=== PATIENT | female | born 1975 | race Caucasian/White ===

== ENCOUNTER 2018-11-20 13:48 | Outpatient (REF) | payer BC, SELFPAY ==
--- NOTE | 2018-11-20 12:00 | PAPFT_PTH ---
PATIENT: Leticia Billings LOC: [facility] U#:[id number] AGE/SX: 43/F ROOM: RE11/20/[address]: Karine Miles APRN : 1975 BED: DIS: 11/20/2018 SPEC #: [id number] RECD: 11/21/18 12:49 STATUS: NGOC REHeidy #: [id number] MAXIMILIANO: 11/20/18 12:[address]: Karine Miles DEPT: [facility] Cytology RECD BY: Sanna Larson Tissues: 1 - CX/ENDOCX FOR PAP SMEARS Procedures: PAP THIN PREP/UVM Screening HPV DNA PROBE Comments: [id number]
== END 2018-11-20 14:08 ==
LOC: LBN 13:48
DX: Z12.4 Encounter for screening for malignant neoplasm of cervix (principal); Z11.51 Encounter for screening for human papillomavirus (HPV)
CPT/HCPCS: 88142; 87624

== ENCOUNTER 2019-06-09 00:40 | Outpatient (CLI) | payer BC, SELFPAY ==
--- NOTE | 2019-06-09 15:00 | DI.MAMMO_ITS ---
SYMPTOM/DIAGNOSIS: BREAST CANCER SCREENING. MAMMOGRAMS: Mammograms were interpreted according to the usual protocol including computer analysis with CAD system, tomosynthesis and C view imaging. Comparison with prior examinations. Breast density category C. No suspicious masses or microcalcifications are seen. There is no definite evidence of malignancy. IMPRESSION: Category 1, negative mammogram. Routine screening is recommended. Breast density category C. MQSA ASSESSMENT OF FINDINGS: Negative. Category 1. Patient will receive a letter notifying them of these results. Bi-RADS category C. The breasts are heterogeneously dense, which may obscure small masses.
== END 2019-06-09 01:00 ==
DX: Z12.31 Encounter for screening mammogram for malignant neoplasm of breast (principal)
CPT/HCPCS: 77063; 77067

== ENCOUNTER 2019-11-28 01:15 | Outpatient (CLI) | payer BC, SELFPAY ==
[2019-11-28 10:31] LABS: Anion Gap 10.1 mmol/L (3-11); BUN 10 mg/dL (7-18); CO2 27.9 mmol/L (21.0-32.0); CREATININE 0.73 mg/dL (0.55-1.02); Calcium 9.4 mg/dL (8.5-10.1); Chloride 105 mmol/L (98-107); Glucose 85 mg/dL (74-106); Potassium 4.1 mmol/L (3.5-5.1); Sodium 143 mmol/L (136-145); TSH (W/Ref FT4) 1.56 uIU/mL (0.36-3.74)
== END 2019-11-28 01:35 ==
DX: Z00.00 Encounter for general adult medical examination without abnormal findings (principal); R00.2 Palpitations; G47.00 Insomnia, unspecified
CPT/HCPCS: 36415; 80048; 84443

== ENCOUNTER 2020-05-09 21:34 | Emergency (ER) | payer BC, SELFPAY ==
[2020-05-09 21:38] VITALS: BP 157/82; PULSE 89; RESP 16; TEMP 37.3; O2SAT 99
--- NOTE | 2020-05-09 21:52 | ED.GENADUL_ITS ---
Discharge Plan Disposition Patient Disposition: HOME Condition: Stable Discharge Details Chief Complaint: Allergic Clinical Impression: Contact dermatitis Primary Care Provider: Karine Miles ED Provider: Michael Dillon Home Meds and New Rx's Prescriptions: New prednisone 20 mg tablet 60 mg PO DAILY 5 Days Qty: 15 RF: 0 Continued lorazepam 0.5 mg tablet 0.5 mg PO BID MDD 2mg PRN (Reason: anxiety/panic) Qty: 18 RF: 0 acetaminophen [Tylenol] 325 MG tablet 650 mg PO PRN PRNRF: 0 ibuprofen 600 MG tablet 600 mg PO TID PRN RF: 0 naproxen sodium [Aleve] 220 MG capsule 220 mg PO BID PRNRF: 0 escitalopram oxalate 5 mg tablet 5 mg PO DAILY Qty: 30 RF: 1 epinephrine [EpiPen 2-Elier] 0.3 MG/0.3 ML auto-injector 0.3 mg IJ DIRECTED PRN (Reason: Anaphylaxis) Qty: 1 RF: 0 Discharge Instructions Instructions: Dermatitis (ED) Additional Instructions: Prednisone as directed. Klwv-jaz-eumvfys Benadryl as directed. Please watch for new or worsening symptoms and return to the ER for any concerns. I do recommend reaching out your primary care provider tomorrow for prompt outpatient reevaluation and refill of your Ativan prescription. Medical Decision Making Patient presents with localized contact dermatitis that occurred today after using hair dye. Denies any systemic symptoms. She appears well, nontoxic, no acute distress. She reports a similar episode roughly 5 years ago that got much more severe causing facial swelling requiring steroids. Currently she is able to speak in full sentences, airway is patent, lungs are clear to auscultation. We discussed steroid options, will provide a burst dose and give first dose now. She will continue using wfwu-gqb-wlacacy Benadryl. She does report that she will likely experience increased anxiety and she is out of her Lorazepam. I explained to her that this was a controlled substance and I recommend contacting her primary care provider tomorrow to discuss refill as opposed to having a refill from the ER setting. She understands and is agreeable. No additional questions or concerns Medical Records Medical records reviewed: Yes I reviewed the patient's medical records. HPI General Mode of arrival: ambulatory . Date/Time Provider Initiated Documentation: 05/09/20 21:35 . Limitations to Documentation: no limitations . Information obtained by: patient . HPI Narrative: 45-year-old female with history of anxiety, anemia, presents to the ER for an allergic reaction. She reports that she used topical hair dye around noon today and then felt itching to her entire scalp. This has happened before, so severely that even when the hair touches her face or neck she breaks out in a rash there as well. She denies rash elsewhere on her body. She denies difficulty speaking, swallowing, breathing, wheezing or shortness of breath. She did take nfdb-vxo-fzzoexy Benadryl for her symptoms. She reports that she has needed oral steroids in the past when she had a reaction to severely. Denies recent illness or trauma. No additional questions or concerns at this time Related Data Home Medications Medication Instructions Recorded Confirmed acetaminophen [Tylenol] 650 mg PO PRN PRN tab-cap 12/04/13 08/06/19 ibuprofen 600 mg PO TID PRN tab-cap 12/04/13 08/06/19 epinephrine [EpiPen 2-Elier] 0.3 mg IJ DIRECTED PRN #1 kit 03/14/17 08/06/19 naproxen sodium [Aleve] 220 mg PO BID PRN 08/02/17 08/06/19 lorazepam 0.5 mg tablet 0.5 mg PO BID PRN #18 tab MDD 2mg 11/24/19 11/24/19 escitalopram oxalate 5 mg tablet 5 mg PO DAILY #30 tab 12/22/19 prednisone 60 mg PO DAILY 5 Days #15 tab 05/09/20 Previous Rx's Medication Instructions Recorded epinephrine [EpiPen 2-Elier] 0.3 mg IJ DIRECTED PRN #1 kit 03/14/17 lorazepam 0.5 mg tablet 0.5 mg PO BID PRN #18 tab MDD 2mg 11/24/19 escitalopram oxalate 5 mg tablet 5 mg PO DAILY #30 tab 12/22/19 prednisone 60 mg PO DAILY 5 Days #15 tab 05/09/20 Allergies Allergy/AdvReac Type Severity Reaction Status Date / Time sertraline HCl [From Zoloft] AdvReac Mild H/A Verified 11/24/19 10:25 PPD (Found in Hair Dye) Allergy Intermediate Skin Rash Uncoded 02/07/19 15:06 General Stated Complaint: Allergic GISELA: 3 Review of Systems Constitutional Constitutional: Denies fever(s) and Denies headache(s) Eyes Eyes: Denies itchy eyes ENT Ears, Nose, Mouth, and Throat: Denies headache(s), Denies lip swelling, Denies sore throat, Denies throat swelling and Denies tongue swelling Cardiovascular Cardiovascular: Denies dyspnea Respiratory Respiratory: Denies dyspnea and Denies wheezing Gastrointestinal Gastrointestinal: Denies nausea Integumentary/Breasts Skin/Breast: Reports rash Neurologic Neurologic: Denies headache(s) Psychiatric Psychiatric: Reports anxiety Allergic/Immunologic Allergic/Immunologic: Denies urticaria, Denies itchy eyes, Denies lip swelling, Denies throat swelling, Denies tongue swelling and Denies wheezing [facility] Medical History Anxiety (Chronic) Healthcare maintenance (Acute) Hip pain, bilateral (Chronic) Ingrowing toenail with infection (Resolved 12/14/16) Intermittent palpitations (Inactive) Iron deficiency anemia (Resolved 12/19/13) due to heavy menses Menorrhagia (Resolved 12/04/13) 10/26 Ronald, endometrial ablation Panic disorder (Chronic) Surgical History section 02/12 09/20 Endometrial Biopsy (10/14/15) DR. SUN; SEE SCANNED REPORT History of bilateral ligation of fallopian tubes (Inactive) History of section (Inactive) Ligation of fallopian tube Recurrent major depression in partial remission Family History Mother Anxiety Father Bipolar disorder Brother Essential hypertension Hyperlipidemia Maternal Grandfather Lung cancer Asthma Paternal Grandfather Heart disease Maternal Grandmother Diabetes Paternal Grandmother Asthma Son No problems noted. Son No problems noted. Daughter No problems noted. Daughter No problems noted. Social History Smoking/Tobacco Use Status: Never Second Hand Exposure: No Alcohol Intake: current Alcohol Intake frequency: a few times a week Alcohol type: beer and wine Drug use: Never Substance use type: does not use Counseling given: No Counseling provided: none Caregiver/Support person: No Household members: spouse and children Housing: house Communication Needs: None Do you need help understanding health information?: Never Pets and animals: Yes Pets and animals: cat(s) and dog(s) Sexually active: Yes Do you think of yourself as: straight/heterosexual Current gender identity: female What is your relationship status?: How often do you talk on the phone with friends or family?: three or more times per week How often do you get together with friends or relatives?: three or more times per week How often do you attend taoist or jain services?: 1-3 times per year Do you belong to any clubs or organized social groups?: no Panel score (0-1 are the most socially isolated patients): 2 What type of physical activity do you participate in: walking and yoga Duration: 15-30 minutes/day Frequency: 5-6 times per week Kelly/Baptism: Hoahaoism Special kelly needs: No Seatbelt use: always Helmet use: Yes Helmet use: always Drive intox or ride w/intox driver license agent: No Do you feel safe at home: Yes Do you feel safe in your relationship?: Yes Exam Const General: cooperative, healthy appearing, comfortable and no acute distress Orientation: alert and awake [facility] Head: no palpable skull fracture, normocephalic and atraumatic Face and sinus: normal facial exam Mouth: oral mucosae normal and moist mucous membranes Throat: posterior oropharynx normal Eyes Conjunctivae: conjunctivae normal Sclera: sclerae normal Neck Neck: full ROM, no lymphadenopathy, no meningeal signs, trachea midline, supple, nontender and other (Posterior aspect with mild macular erythema) Resp Effort & Inspection: normal respiratory effort and able to speak in complete sentences Auscultation: clear to auscultation bilaterally Cardio Rate: regular rate Rhythm: regular rhythm Skin Lesions: no lesions Rashes: rashes noted (Entire scalp, macular erythema, areas of excoriation) Neuro General: patient alert, patient awake, moves all extremities and no focal motor deficits Speech: speech normal Sensory Exam: no sensory deficits noted Psych Appearance: grossly normal Mental Status: mental status grossly normal Course Vital Signs Vital signs: Vital Signs Temperature 37.3 C 05/09/20 21:38 Pulse 89 05/09/20 21:38 Respiratory Rate 16 05/09/20 21:38 Blood Pressure 157/82 H 05/09/20 21:38 Pulse Oximetry 99 05/09/20 21:38 Temperature 37.3 C 05/09/20 21:38 Temperature Source Skin 05/09/20 21:38 Pulse 89 05/09/20 21:38 Respiratory Rate 16 05/09/20 21:38 Respiratory Effort 05/09/20 21:40 Respiratory Pattern Normal 05/09/20 21:40 Blood Pressure 157/82 H 05/09/20 21:38 Blood Pressure Position Sitting 05/09/20 21:38 Pulse Oximetry 99 05/09/20 21:38 Oxygen Delivery Method Room Air 05/09/20 21:38 Oxygen Flow Rate 0 05/09/20 21:38
[2020-05-09] MEDS: predniSONE 20 MG TAB 60 MG PO (21:57)
== END 2020-05-09 22:05 | disposition home or self-care (01) ==
PROVIDERS: Emergency Provider Physician Assistant
DX: L23.4 Allergic contact dermatitis due to dyes (principal); L29.8 Other pruritus; F41.9 Anxiety disorder, unspecified
CPT/HCPCS: 99283; J7512

== ENCOUNTER 2020-09-12 00:19 | Emergency (ER) | payer BC, SELFPAY ==
--- NOTE | 2020-09-12 00:15 | RT.EKG_ITS ---
APPROVED REPORT Exam: Resting ECG Patient Location: E HR:92 bpm ECG Measurements Heart Rate 92 AXIS MA 126 P 79 QRSd 94 QRS 41 QT 353 T 60 QTc 436 Conclusion Sinus rhythm...normal P axis, V-rate 60- 99 Physician read: Rate 92, intervals normal, sinus rhythm, no STEMI, no significant abnormalities.
[2020-09-12 00:24] VITALS: BP 171/88; PULSE 103; RESP 18; TEMP 36.8; O2SAT 100
--- NOTE | 2020-09-12 00:28 | ED.GENADUL_ITS ---
Discharge Plan Disposition Patient Disposition: HOME Condition: Good Discharge Details Clinical Impression: Anxiety Primary Care Provider: Karine Miles ED Provider: Adrian Stein Home Meds and New Rx's Prescriptions: Continued acetaminophen [Tylenol] 325 MG tablet 650 mg PO PRN PRNRF: 0 ibuprofen 600 MG tablet 600 mg PO TID PRN RF: 0 naproxen sodium [Aleve] 220 MG capsule 220 mg PO BID PRNRF: 0 epinephrine [EpiPen 2-Elier] 0.3 MG/0.3 ML auto-injector 0.3 mg IJ DIRECTED PRN (Reason: Anaphylaxis) Qty: 1 RF: 0 Discharge Instructions Instructions: Anxiety (ED) Additional Instructions: At this time your symptoms appear consistent with anxiety. Please take the anxiety medications only if needed at home on a as needed basis. Although easier said than done, do your best to decrease the stresses in your life as much as possible, making sure to take plenty of time for yourself for dieting, exercise, and mental wellness. If you notice any worsening of your symptoms, or any new symptoms such as vomiting, diarrhea, fever, chills, shortness of breath, chest pain, numbness, weakness, or fainting , please return immediately to the emergency department for reevaluation. Please follow up with your primary care provider as soon as possible for reassessment and reevaluation. As always, it was a pleasure participating in your medical care today. Referrals: Karine Miles, [employer] [Primary Care Provider] - Medical Decision Making 45-year-old female with a past medical history of anxiety who presents today for evaluation of self-described panic attack. Patient states that over the last few weeks she has had a notable amount of stress, her parents have been living with her for the last 2 weeks and will be going to [place] tomorrow, which she states is brought about notable anxiety. In addition to that she is recently had some parties in activities which have added to the current stress situation. Patient states that over the last day or so she has felt the stress building, and then of the last 24 hours she noted a very mild amount of chest tightness, fluttering which she states is identical to her normal panic attacks. Her feelings of panic have increased throughout the night, she did try to take a Benadryl to go to sleep but this was otherwise unremitting. She came to the ER for further evaluation. Normally she has 0.5 mg of lorazepam at home to take as needed however she is currently out of these. She denies any homicidal or suicidal ideations. She denies any tearing or ripping sensation in her chest. She denies any history of cardiac disease. She denies any significant chest pain whatsoever at this time. She has no other complaints at this time. No other modifying factors. She denies any IV or illicit drug use. Physical exam is unremarkable. No pulse asymmetry, unremarkable exam, she does seem in appear notably tremulous and anxious. With no significant chest pain at this time, no tearing or ripping sensation, and no pulse asymmetry her symptoms appearing consistent with dissection or impending doom scenario. Rather with her symptoms being identical to previous episodes of panic attacks, I feel that this is clinically consistent with her current symptomatology. Out of an abundance of precaution a screening EKG was ordered, this was unremarkable. No evidence of STEMI or other significant abnormality. Patient was given Ativan, she has had notable improvement with this. This time symptoms appear consistent with panic attack and inconsistent with other acute life-threatening etiology. We will give her a few doses of Ativan to go home with to be used as needed. Encourage close follow-up with her PCP. Discussed red flags which to return. Case was discussed with the patient's as well over the phone. He agrees with the plan. I have extensively reviewed the treatment plan and discharge instructions with the patient. I have addressed all patient concerns at this time. The patient was made aware of what symptoms to monitor for that would warrant a return to the emergency department. Discussed the plan with the patient, they demonstrate verbal understanding and agreement with our assessment and plan at this time. EKG 00: 3 2 Rate 92, intervals normal, sinus rhythm, no STEMI, no significant abnormalities. No significant change from EKG in 2017 HPI General Date/Time Provider Initiated Documentation: 09/12/20 00:20 . HPI Narrative: 45-year-old female with a past medical history of anxiety who presents today for evaluation of self-described panic attack. Patient states that over the last few weeks she has had a notable amount of stress, her parents have been living with her for the last 2 weeks and will be going to [place] tomorrow, which she states is brought about notable anxiety. In addition to that she is recently had some parties in activities which have added to the current stress situation. Patient states that over the last day or so she has felt the stress building, and then of the last 24 hours she noted a very mild amount of chest tightness, fluttering which she states is identical to her normal panic attacks. Her feelings of panic have increased throughout the night, she did try to take a Benadryl to go to sleep but this was otherwise unremitting. She came to the ER for further evaluation. Normally she has 0.5 mg of lorazepam at home to take as needed however she is currently out of these. She denies any homicidal or suicidal ideations. She denies any tearing or ripping sensation in her chest. She denies any history of cardiac disease. She denies any significant chest pain whatsoever at this time. She has no other complaints at this time. No other modifying factors. She denies any IV or illicit drug use. Related Data Home Medications Medication Instructions Recorded Confirmed acetaminophen [Tylenol] 650 mg PO PRN PRN tab-cap 12/04/13 09/12/20 ibuprofen 600 mg PO TID PRN tab-cap 12/04/13 09/12/20 epinephrine [EpiPen 2-Elier] 0.3 mg IJ DIRECTED PRN #1 kit 03/14/17 09/12/20 naproxen sodium [Aleve] 220 mg PO BID PRN 08/02/17 09/12/20 Previous Rx's Medication Instructions Recorded epinephrine [EpiPen 2-Elier] 0.3 mg IJ DIRECTED PRN #1 kit 03/14/17 Allergies Allergy/AdvReac Type Severity Reaction Status Date / Time sertraline HCl [From Zoloft] AdvReac Mild H/A Verified 09/12/20 00:31 PPD (Found in Hair Dye) Allergy Intermediate Skin Rash Uncoded 09/12/20 00:31 General GISELA: 3 Review of Systems All systems reviewed & are unremarkable except as noted in HPI and below [facility] Medical History (Updated 09/12/20 @ 00:41 by Adrian Stein DO) Anxiety Healthcare maintenance Hip pain, bilateral Ingrowing toenail with infection (12/14/16) Intermittent palpitations Iron deficiency anemia (12/19/13) due to heavy menses Menorrhagia (12/04/13) 10/26 Ronald, endometrial ablation Panic disorder Surgical History section 02/12 09/20 Endometrial Biopsy (10/14/15) DR. SUN; SEE SCANNED REPORT History of bilateral ligation of fallopian tubes History of section Ligation of fallopian tube Recurrent major depression in partial remission Family History Mother Anxiety Father Bipolar disorder Brother Essential hypertension Hyperlipidemia Maternal Grandfather Lung cancer Asthma Paternal Grandfather Heart disease Maternal Grandmother Diabetes Paternal Grandmother Asthma Son No problems noted. Son No problems noted. Daughter No problems noted. Daughter No problems noted. Social History Smoking/Tobacco Use Status: Never Second Hand Exposure: No Smoking risk assessment performed?: Yes Alcohol Intake: current Alcohol Intake frequency: a few times a month Alcohol type: beer and wine Drug use: Never Substance use type: does not use Counseling given: No Counseling provided: none Caregiver/Support person: No Household members: spouse and children Housing: house Communication Needs: None Do you need help understanding health information?: Never Pets and animals: Yes Pets and animals: cat(s) and dog(s) Sexually active: Yes Do you think of yourself as: straight/heterosexual Current gender identity: female What is your relationship status?: How often do you talk on the phone with friends or family?: three or more times per week How often do you get together with friends or relatives?: three or more times per week How often do you attend gnosticism or shinto services?: 1-3 times per year Do you belong to any clubs or organized social groups?: no Panel score (0-1 are the most socially isolated patients): 2 What type of physical activity do you participate in: walking and yoga Duration: 15-30 minutes/day Frequency: 5-6 times per week Kelly/Amish: Worship Special kelly needs: No Seatbelt use: always Helmet use: Yes Helmet use: always Drive intox or ride w/intox 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 3.ENT: Atraumatic external nose and ears. Moist MM. Neck: Symmetric, trachea midline, No thyromegaly. 4.CVS: +S1/S2, mild systolic murmur (patient states she has a history of cardiac murmur initially diagnosed in childhood), no gallops. Peripheral pulses 2+ and equal in all extremities. Brisk capillary refill in all extremities. 5.RESP: Unlabored respiratory effort. Clear to auscultation bilaterally. No wheezes rales or rhonchi 6.GI: Soft, Nontender/Nondistended, No hepatosplenomegaly. No guarding or rebound. 7.MSK: Normocephalic/Atraumatic, Extremities w/o deformity or ttp No cyanosis or clubbing, Normal movement of all extremities 8.Skin: Warm, Dry. No rashes or lesions. 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 Sensation grossly intact, no focal neurologic deficits. 10.Psych: (AAO) x3. Anxious, tremulous, mildly tearful.
[2020-09-12] MEDS: LORazepam 1 MG TAB PO (00:35)
[2020-09-12] MEDS: LORazepam 0.5 MG TAB 1 MG PO (01:17)
== END 2020-09-12 01:20 | disposition home or self-care (01) ==
LOC: ER 01:36
PROVIDERS: Emergency Provider Student in an Organized Health Care Education/Training Program
DX: F41.9 Anxiety disorder, unspecified (principal); R07.89 Other chest pain
CPT/HCPCS: 93005; 99284; 93010

== ENCOUNTER 2020-11-17 04:09 | Outpatient (CLI) | payer BC, SELFPAY ==
[2020-11-18 16:33] LABS: COVID-19 RT-PCR UVMMC Result Negative (Negative)
== END 2020-11-17 04:29 ==
DX: Z20.828 Contact with and (suspected) exposure to other viral communicable diseases (principal)
CPT/HCPCS: U0003

== ENCOUNTER 2020-12-01 04:20 | Outpatient (CLI) | payer BC, SELFPAY ==
[2020-12-01 09:38] LABS: ALT 22 U/L (14-59); AST 19 U/L (15-37); Albumin 4.1 g/dL (3.4-5.0); Alkaline Phosphatase 41 U/L (46-116); Anion Gap 10.3 mmol/L (3-11); BUN 13 mg/dL (7-18); Bilirubin, Total 0.3 mg/dL (0.2-1.0); CO2 24.7 mmol/L (21.0-32.0); CREATININE 0.64 mg/dL (0.55-1.02); Calcium 8.6 mg/dL (8.5-10.1); Calculated LDL 143 mg/dL (<100); Chloride 106 mmol/L (98-107); Cholesterol 253 mg/dL (<200); Glucose 86 mg/dL (74-106); HDL Cholesterol 80 mg/dL (40-60); Potassium 4.2 mmol/L (3.5-5.1); Sodium 141 mmol/L (136-145); Total Protein 7.3 g/dL (6.4-8.2); Triglyceride 152 mg/dL (<150)
== END 2020-12-01 04:40 ==
DX: Z00.00 Encounter for general adult medical examination without abnormal findings (principal); E78.5 Hyperlipidemia, unspecified
CPT/HCPCS: 36415; 80053; 80061

== ENCOUNTER 2020-12-16 01:11 | Outpatient (CLI) | payer BC, SELFPAY ==
--- NOTE | 2020-12-16 07:00 | DI.MAMMO_ITS ---
EXAM: MG MAMMO SCREENING CLINICAL HISTORY: screening,Z12.39 TECHNIQUE: Bilateral full field digital CC and MLO mammographic images were obtained with 3D tomosyn thesis and utilizing computer aided detection (CAD). COMPARISON: Available for comparison. FINDINGS: Masses/Architectural Distortion: None seen. Microcalcifications: No suspicious pleomorphic-type are seen. Skin Thickening/Nipple Retraction: None. IMPRESSION: 1. No significant interval change with no specific features of malignancy noted. 2. Unless there is more urgent need, screening mammography is recommended, as per [place] [employer] guidelines. BI-RADS Category 1 - Negative Breast Density - Category C - Heterogeneously dense Breast density category C or D implies that the patient has dense breast tissue. Dense breast tissue is very common and is not abnormal but dense breast tissue can make it harder to find cancer on a ma mmogram. Also, dense breast tissue may increase their breast cancer risk. This information about the result of the mammogram report was provided to the patient to raise their awareness. Use this report when you speak with the patient about their risks for breast cancer, which includes their family hist ory. At that time, you may recommend for more screening tests (Ultrasound or MRI) as they might be us eful based on their risk. A negative radiographic report should not delay biopsy if a dominant or clinically suspicious mass is present. Up to ten percent of cancers are not identified on mammography. A negative report may reinforce clinical impression. Adenosis and dense breasts may obscure an underlying neoplasm. False positive reports average 6 to 10%. Patient will receive a letter notifying them of these results.
== END 2020-12-16 01:12 | disposition home or self-care (01) ==
DX: Z12.31 Encounter for screening mammogram for malignant neoplasm of breast (principal)
CPT/HCPCS: 77063; 77067

== ENCOUNTER 2021-03-16 04:11 | Outpatient (CLI) | payer BC, SELFPAY ==
[2021-03-17 11:51] LABS: COVID-19 RT-PCR UVMMC Result Negative (Negative)
== END 2021-03-16 04:12 | disposition home or self-care (01) ==
LOC: LBO 04:12
DX: Z20.822 Contact with and (suspected) exposure to COVID-19 (principal); R05 Cough
CPT/HCPCS: U0003

== ENCOUNTER 2021-04-25 02:23 | Outpatient (CLI) | payer BC, SELFPAY ==
[2021-04-26 14:33] LABS: COVID-19 RT-PCR UVMMC Result Negative (Negative)
== END 2021-04-25 02:24 | disposition home or self-care (01) ==
LOC: LBO 02:23
DX: Z20.822 Contact with and (suspected) exposure to COVID-19 (principal)
CPT/HCPCS: U0003

== ENCOUNTER 2021-06-15 07:26 | Outpatient (RCR) | payer BC, SELFPAY ==
--- OUTSIDE RECORDS SUMMARY | 2021-06-15 07:31 | XMS_ITS ---
:1975 Author Care Team Providers Name Role Phone DARÍO RAIN Primary Care Provider [phone] DARÍO RAIN Referring Provider [phone] Allergies Code Code System Name Reaction Severity Status Onset 54522 RxNorm Sertraline ? ? Active ? Medications Name Status Start Date Stop Date ? ? Kennedi Allergy Completed ? 09/04/2016 1 daily Benadryl 25 mg capsule Completed ? 6 Take 2 capsules every 6 hours by oral route as needed. Claritin 10 mg tablet Active ? Not availa ble Take 1 tablet every day by oral route. hydrocortisone 2.5 % topical ointment Completed ? 09/04/2016 APPLY A THIN LAYER TO THE AFFECTED AREA(S) BY TOPICAL ROUTE 2 T IMES PER DAY hydroxyzine HCl 25 mg tablet Active ? Not available Take 1 tablet every 6 hours by oral route as needed. IBU 600 mg tablet Active ? Not available Take 1 tablet 3 times a day by oral route. prednisone 20 mg tablet Completed ? 09/04/20 16 Take 1 tablet every day by oral route. Tylenol 325 mg tablet Active ? Not availa ble Take 2 tablets every 6 hours by oral route as needed. Problems Name Status Onset Date Source ? Pain in Left Foot Active 09/01/2016 ? Bunion Active 09/01/2016 ? Procedures None recorded. Results Lab Results None recorded. Past Encounters None recorded. Social History Tobacco Smoking Status Never Smoker Vaccine List None recorded. Plan of Care Reminders Provider Appointments None ? ? recorded. Lab None ? ? recorded. Referral None ? ? recorded. Procedures None ? ? recorded. Surgeries None ? ? recorded. Imaging None ? ? recorded. Vitals 09/18/2016 01:15PM FOLLOW UP Weight Blood Pressure 49.9 kg 110/62 mm[Hg] 09/04/2016 01:30PM NEW PATIENT Weight Blood Pressure 64.86 kg 110/60 mm[Hg]
--- NOTE | 2021-06-15 11:15 | HOLTER_ITS ---
APPROVED REPORT Conclusion This is a 48-hour monitor ordered for indication of palpitations. The patient was in normal sinus rhythm for the majority of the recording with an average heart rate o f 77 bpm. There were no episodes of ventricular tachycardia and rare PVCs. There were no episodes of supraventricular tachycardia and rare PACs. There were no episodes of atrial fibrillation, no pauses greater than 3 seconds and no evidence of hi gh degree heart block. There were 12 patient reported events all associated with fluttering x1 second. None of these were a ssociated with significant arrhythmia.
== END 2021-07-12 23:59 | disposition home or self-care (01) ==
LOC: RT 07:26
PROVIDERS: Visit Provider Family Medicine
DX: R00.2 Palpitations (principal)
CPT/HCPCS: 93225; 93226

== ENCOUNTER 2021-12-21 01:37 | Outpatient (CLI) | payer BC, SELFPAY ==
[2021-12-21 09:09] LABS: ALT 23 U/L (14-59); AST 15 U/L (15-37); Albumin 3.9 g/dL (3.4-5.0); Alkaline Phosphatase 55 U/L (46-116); BUN 21 mg/dL (7-18); Bilirubin, Total 0.3 mg/dL (0.2-1.0); CREATININE 0.6 mg/dL (0.55-1.02); Calcium 8.8 mg/dL (8.5-10.1); Calculated LDL 160 mg/dL (<100); Chloride 106 mmol/L (98-107); Cholesterol 265 mg/dL (<200); Glucose 91 mg/dL (74-106); HDL Cholesterol 67 mg/dL (40-60); Sodium 142 mmol/L (136-145); Total Protein 7.5 g/dL (6.4-8.2); Triglyceride 194 mg/dL (<150)
== END 2021-12-21 01:38 | disposition home or self-care (01) ==
LOC: LBO 01:37
DX: E78.5 Hyperlipidemia, unspecified (principal); R00.2 Palpitations; F41.0 Panic disorder [episodic paroxysmal anxiety]
CPT/HCPCS: 36415; 80053; 80061

== ENCOUNTER 2022-01-16 03:25 | Outpatient (CLI) | payer BC, SELFPAY ==
--- NOTE | 2022-01-16 07:15 | DI.MAMMO_ITS ---
Exam(s) MAMMO SCREENING EXAM: MAMMO SCREENING CLINICAL HISTORY: screening,z12.39 TECHNIQUE: Mammograms were interpreted according to the usual protocol including computer analysis w [employer] CAD system, tomosynthesis and C-view imaging. COMPARISON: 2016 through 2020 FINDINGS: The breasts are composed of heterogeneously dense fibroglandular densities, Breast Density category C . No suspicious masses or suspicious microcalcifications are seen. No skin thickening or abnormal axillary lymph nodes are seen. There has been no significant change from prior exams. IMPRESSION: BI-RADS Category 1, Negative mammogram. Yearly screening mammography is recommended. Breast Density Category C, heterogeneously Dense. The mammogram demonstrates the patient's breast tissue is dense. Dense breast tissue is very common a nd is not abnormal but dense breast tissue can make it harder to find cancer on a mammogram. Also, de nse breast tissue may increase breast cancer risk. This information about the result of the mammogram report was provided to the patient to raise their awareness. Use this report when you speak with the patient about their risks for breast cancer, which includes their family history. At that time, you may recommend additional screening tests (Ultrasound or MRI) as they might be useful based on their r isk. A negative radiographic report should not delay biopsy if a dominant or clinically suspicious mass is present. Up to ten percent of cancers are not identified on mammography. A negative report may reinforce clinical impression. Adenosis and dense breasts may obscure an underlying neoplasm. False positive reports average 6 to 10%.
== END 2022-01-16 03:45 ==
DX: Z12.31 Encounter for screening mammogram for malignant neoplasm of breast (principal)
CPT/HCPCS: 77063; 77067

== ENCOUNTER → 2022-04-03 13:42 | Outpatient (CLI) | payer BC, SELFPAY ==
--- NOTE | 2022-04-03 11:45 | DI.RAD_ITS ---
Exam(s) XR THUMB RT XR WRIST RT COMPL NAVICULAR EXAM: XR WRIST RT COMPL NAVICULAR CLINICAL HISTORY: HYPEREXTENDING INJURY -- M79.646. TECHNIQUE: 2D digital imaging was performed. Three views of the thumb. Four views of the wrist inc luding navicular view. COMPARISON: CR XR THUMB RT from 04/03/2022 FINDINGS: BONES: No acute fracture is present. No bony destructive lesion is seen. JOINTS: The carpal bones are normally aligned. SOFT TISSUE: Normal. IMPRESSION: Unremarkable radiographs of the right wrist and right thumb. DATA REPOSITORY: RADIATION DOSE DELIVERED:
== END ==
PROVIDERS: Visit Provider Physician Assistant
DX: M79.644 Pain in right finger(s) (principal); M25.531 Pain in right wrist
CPT/HCPCS: 73110; 73140

== ENCOUNTER 2022-04-26 16:59 | Emergency (ER) | payer BC, SELFPAY ==
[2022-04-26] VITALS (76 sets, daily range): BP systolic 109–180; BP diastolic 58–90; PULSE 66–124; RESP 10–21; TEMP 36.9; O2SAT 96–100
--- NOTE | 2022-04-26 17:00 | RT.EKG_ITS ---
APPROVED REPORT Exam: Resting ECG Reason for Exam: heart racing Patient Location: E HR:122 bpm ECG Measurements Heart Rate 122 AXIS MS 158 P 107 QRSd 94 QRS 147 QT 322 T 122 QTc 459 Conclusion Right and left arm electrode reversal, interpretation assumes no reversal Sinus tachycardia...rate> 99 Right axis deviation...QRS axis (100,269) Abnormal T, consider ischemia, lateral leads...T <-0.20mV, I aVL V5 V6. Lead reversal. No STEMI. Will repeat EKG. I have reviewed and interpreted ECG and agree with software generated interpretation.
--- NOTE | 2022-04-26 17:15 | DI.RAD_ITS ---
Exam(s) XR CHEST 2V PA LATERAL EXAM: XR CHEST 2V PA LATERAL CLINICAL HISTORY: Palpitations. TECHNIQUE: 2D digital imaging was performed. COMPARISON: No exams were available for comparison FINDINGS: 2 views: Heart size is normal. The mediastinum is not widened. Lungs are clear. No infiltrates nor pleural effusions. IMPRESSION: No acute pulmonary findings. DATA REPOSITORY: RADIATION DOSE DELIVERED:
--- NOTE | 2022-04-26 17:15 | RT.EKG_ITS ---
APPROVED REPORT Exam: Resting ECG Reason for Exam: Palpitations Patient Location: E HR:65 bpm ECG Measurements Heart Rate 65 AXIS MD 116 P 51 QRSd 86 QRS 48 QT 383 T 59 QTc 400 Conclusion Sinus rhythm...normal P axis, V-rate 60- 99. Sinus. Normal axis. No STEMI. I have reviewed and interpreted ECG and agree with software generated interpretation.
--- NOTE | 2022-04-26 17:29 | ED.GENADUL_ITS ---
Discharge Plan Disposition Patient Disposition: HOME Condition: Improving Discharge Details Clinical Impression: Palpitations, Anxiety, Chest tightness Primary Care Provider: Karine Miles ED Provider: Michael Dillon Home Meds and New Rx's Prescriptions: Continued acetaminophen [Tylenol] 325 MG tablet 650 mg PO PRN PRN ibuprofen 600 MG tablet 600 mg PO TID PRN promethazine 12.5 mg tablet 12.5 mg PO BID PRN (Reason: nausea and vomiting) Qty: 10 0RF lorazepam 0.5 mg tablet 0.5 mg PO BID MDD 2mg PRN (Reason: anxiety/panic) Qty: 18 0RF Rx Instructions: 0.5-1.0mg (1-2 tabs) up to 2 times per day for severe panic Discharge Instructions Instructions: Heart Palpitations (ED), Anxiety (ED) Additional Instructions: Work-up in the ER has been unremarkable for any obvious emergent process, your rapid cardiac rule out has been unremarkable. Your vital signs are now normal and you are asymptomatic. Please watch for new or worsening symptoms and return to the ER for any concerns. I have set you up for a Holter monitor, respiratory should be reaching out to you in the next 24-48 hours to set up a time to apply this. Lastly I do recommend that she contact your primary care provider tomorrow to discuss your ER visit need for outpatient reevaluation. I do believe getting reconnected with your cognitive behavioral therapist will be beneficial. Discharge Orders Other Ambulatory Orders: Holter Monitor (Routine) Timeframe: 1 Week Facility: [facility] - Location: Respiratory Therapy Ordered By: Michael Dillon Medical Decision Making This is a 47-year-old female, past medical history of anxiety, panic attacks, hyperlipidemia, palpitations, anemia, presenting to the ER reporting increased palpitations, chest pressure, head pressure, stress and anxiety over the past week. She is unsure if this is simply just worsening anxiety or if there could be something more wrong. She denies any true headache or chest pain. Clinically she is slightly anxious but otherwise appears well. In triage her heart rate was in the 120s but during my evaluation her heart rate is in the 90s. Plan is to obtain a cardiac work-up including a D-dimer although low suspicion for PE. Given the duration of her symptoms although nearly a week, reports active symptoms now and therefore will obtain a delta troponin in 3 hours. Patient is agreeable to this plan and has no additional questions or concerns. Patient is planning to reconnect with her cognitive behavior th erapist as well for her worsening anxiety. Patient remains hemodynamically stable, heart rate now in the 80s. Potassium of 3.1, EKG reveals no evidence of hypokalemia, will provide 40 p.o. No evidence of infection, anemia, renal function unremarkable, glucose 93, troponin less than 50, D-dimer of 104, will not pursue CTA of the chest. TSH 1.38. Initial work-up does not reveal any obvious emergent process. Patient remains hemodynamically stable and reports that she is now asymptomatic. Agreeable to awaiting a delta troponin. We will also set her up for an outpatient Holter monitor. Repeat EKG performed at 2026, please see official report by Dr. Minor. Sinus rhythm, ventricular of 65, no STEMI. Delta troponin remains less than 50. Discussed work-up including repeat EKG and troponin. Patient remains asymptomatic. Patient feels well and is comfortable discharge. Plans to contact her primary care provider and her cognitive behavioral therapist tomorrow Standard discharge and return precautions were provided. Patient understands, is agreeable to this plan, and has no additional questions or concerns upon discharge. This documentation was generated using [employer] dictation system, please disregard any oddities of phrase or misspellings. Medical Records Medical records reviewed: Yes I reviewed the patient's medical records. Imaging Data Radiologic Study: Attestation: I personally reviewed and interpreted this imaging study as follows: Imaging: X-Ray Radiologist's impression: Exam(s) XR CHEST 2V PA LATERAL EXAM: XR CHEST 2V PA LATERAL CLINICAL HISTORY: Palpitations. TECHNIQUE: 2D digital imaging was performed. COMPARISON: No exams were available for comparison FINDINGS: 2 views: Heart size is normal. The mediastinum is not widened. Lungs are clear. No infiltrates nor pleural effusions. IMPRESSION: No acute pulmonary findings. Lab Data Lab results reviewed: Yes I reviewed the patient's lab results. Labs: Laboratory Tests Range/Units 04/26/22 04/26/22 04/26/22 17:12 17:12 17:12 WBC (4.4-10.8) 10^3/uL 8.94 RBC (3.93-5.22) 10^6/uL 4.51 Hgb (11.2-15.7) g/dL 13.1 Hct (36.0-46.0) % 40.2 MCV (80-95) fL 89 MCH (27.0-33.0) pg 29.0 MCHC (32.0-36.0) % 32.6 RDW (11.7-14.6) % 12.4 Plt Count (130-400) 10^3/uL 306 MPV (8.0-11.0) fL 9.1 Immature Gran % 0.2 Neutrophils % 58.2 Lymphocytes % 31.8 Monocytes % 7.4 Eosinophils % 1.8 Basophils % 0.6 Nucleated RBC % (0.0-0.3) % 0.0 Absolute Neutrophils (1.2-6.7) 10^3/uL 5.21 Absolute Lymphocytes (1.2-3.4) 10^3/uL 2.84 Absolute Monocytes (0.1-0.8) 10^3/uL 0.66 Absolute Eosinophils (0.0-0.7) 10^3/uL 0.16 Absolute Basophils (0.0-0.2) 10^3/uL 0.05 PT (9.3-11.0) sec 9.5 INR (0.9-1.1) 0.9 APTT (21.0-27.5) sec 22.5 D-Dimer (<500) ng/mlFEU 104 Sodium (136-145) mmol/L 143 Potassium (3.5-5.1) mmol/L 3.1 L Chloride (98-107) mmol/L 105 Carbon Dioxide (21.0-32.0) mmol/L 25.4 Anion Gap (3-11) mmol/L 12.6 H BUN (7-18) mg/dL 11 Creatinine (0.55-1.02) mg/dL 0.8 Estimated GFR/1.73 m2 (mL/min/1.73m2) >= 60.00 Glucose (74-106) mg/dL 93 Calcium (8.5-10.1) mg/dL 9.4 Magnesium (1.8-2.4) mg/dL 1.9 Total Bilirubin (0.2-1.0) mg/dL 0.3 AST (15-37) U/L 15 ALT (14-59) U/L 21 Alkaline Phosphatase (46-116) U/L 56 Troponin I (<or=60) ng/L < 50 Total Protein (6.4-8.2) g/dL 8.2 Albumin (3.4-5.0) g/dL 4.5 TSH (0.36-3.74) uIU/mL 1.38 Ethyl Alcohol (<10) mg/dL Range/Units 04/26/22 04/26/22 17:15 20:30 WBC (4.4-10.8) 10^3/uL RBC (3.93-5.22) 10^6/uL Hgb (11.2-15.7) g/dL Hct (36.0-46.0) % MCV (80-95) fL MCH (27.0-33.0) pg MCHC (32.0-36.0) % RDW (11.7-14.6) % Plt Count (130-400) 10^3/uL MPV (8.0-11.0) fL Immature Gran % Neutrophils % Lymphocytes % Monocytes % Eosinophils % Basophils % Nucleated RBC % (0.0-0.3) % Absolute Neutrophils (1.2-6.7) 10^3/uL Absolute Lymphocytes (1.2-3.4) 10^3/uL Absolute Monocytes (0.1-0.8) 10^3/uL Absolute Eosinophils (0.0-0.7) 10^3/uL Absolute Basophils (0.0-0.2) 10^3/uL PT (9.3-11.0) sec INR (0.9-1.1) APTT (21.0-27.5) sec D-Dimer (<500) ng/mlFEU Sodium (136-145) mmol/L Potassium (3.5-5.1) mmol/L Chloride (98-107) mmol/L Carbon Dioxide (21.0-32.0) mmol/L Anion Gap (3-11) mmol/L BUN (7-18) mg/dL Creatinine (0.55-1.02) mg/dL Estimated GFR/1.73 m2 (mL/min/1.73m2) Glucose (74-106) mg/dL Calcium (8.5-10.1) mg/dL Magnesium (1.8-2.4) mg/dL Total Bilirubin (0.2-1.0) mg/dL AST (15-37) U/L ALT (14-59) U/L Alkaline Phosphatase (46-116) U/L Troponin I (<or=60) ng/L < 50 Total Protein (6.4-8.2) g/dL Albumin (3.4-5.0) g/dL TSH (0.36-3.74) uIU/mL Ethyl Alcohol (<10) mg/dL 4.6 ECG Data Attestation: I personally reviewed and interpreted this ECG (s) as follows: Interpretation: Please see official report by Dr. Minor. Appears that there is a left and right arm electrode reversal. Sinus tachycardia, ventricular of 122, nonspecific T wave abnormalities. Will request a repeat EKG. Repeat EKG at 1729, please see official report by Dr. Minor. Sinus rhythm, ventricular rate 93, no STEMI. HPI General Mode of arrival: ambulatory . Date/Time Provider Initiated Documentation: 04/26/22 17:01 . Limitations to Documentation: no limitations . Information obtained by: patient . HPI Narrative: This is a 47-year-old female, past medical history that includes palpitations, anxiety, hyperlipidemia, presenting to the ER for 1 week history of intermittent chest pressure, palpitations, chest tightness and occasionally feeling lightheaded. Patient states that her as needed lorazepam typically helps the symptoms. Nothing in particular brings them on but reports that she has been under increased stress over the past week or so. She denies any recent illness or trauma. Denies any chest pain or headaches. Denies visual changes, radiation of her chest tightness in any direction, neck pain, shortness of breath, cough, abdominal pain, nausea, vomiting, numbness, tingling, weakness, change in bowel or bladder function. Patient states that this does feel similar to her typical anxiety but has been much more frequent and intense over the past week. She did have a couple episodes of diarrhea a couple of days ago but that has resolved. Related Data Home Medications Medication Instructions Recorded Confirmed acetaminophen 325 mg tablet 650 mg PO PRN PRN 12/04/13 04/26/22 (Tylenol) ibuprofen 600 mg tablet 600 mg PO TID PRN 12/04/13 04/26/22 promethazine 12.5 mg tablet 12.5 mg PO BID PRN nausea and 11/15/21 04/26/22 vomiting #10 tabs lorazepam 0.5 mg tablet 0.5 mg PO BID PRN anxiety/panic 04/17/22 04/26/22 #18 tabs Previous Rx's Medication Instructions Recorded promethazine 12.5 mg tablet 12.5 mg PO BID PRN nausea and 11/15/21 vomiting #10 tabs lorazepam 0.5 mg tablet 0.5 mg PO BID PRN anxiety/panic 04/17/22 #18 tabs Allergies Allergy/AdvReac Type Severity Reaction Status Date / Time sertraline HCl [From Zoloft] AdvReac Mild H/A Verified 04/26/22 17:07 PPD (Found in Hair Dye) Allergy Intermediate Skin Rash Uncoded 04/26/22 17:07 General Stated Complaint: GenMedical GISELA: 3 Review of Systems Constitutional Constitutional: Denies fatigue, Denies fever(s) and Denies weakness Eyes Eyes: Denies change in vision ENT Ears, Nose, Mouth, and Throat: Denies neck pain Cardiovascular Cardiovascular: Reports chest pain (Described as tightness) and Denies dyspnea Respiratory Respiratory: Denies cough and Denies dyspnea Gastrointestinal Gastrointestinal: Denies abdominal pain, Denies nausea and Denies vomiting Musculoskeletal Musculoskeletal: Denies back pain, Denies neck pain, Denies numbness and Denies tingling Integumentary/Breasts Skin/Breast: Denies rash Neurologic Neurologic: Denies numbness, Denies tingling and Denies weakness Psychiatric Psychiatric: Reports anxiety Endocrine Endocrine: Denies fatigue PFSH All Active Problems (Updated 04/26/22 @ 21:13 by GABRIEL Wood) Chest tightness (Acute) Facial paresthesia (Acute) Intermittent, right - post Covid Hyperlipidemia (Acute) Panic disorder (Chronic) Palpitations (Chronic) Associates with anxiety mostly, sometimes when she does not feel anxious Positive test for human papillomavirus (HPV) (Acute) Hip pain, bilateral (Chronic) Anxiety (Chronic) Medical History Ingrowing toenail with infection (12/14/16) Intermittent palpitations Surgical History section 02/12 09/20 Endometrial Biopsy (10/14/15) DR. SUN; SEE SCANNED REPORT History of bilateral ligation of fallopian tubes History of section Ligation of fallopian tube Recurrent major depression in partial remission Family History Mother Anxiety Father Bipolar disorder Brother Essential hypertension Hyperlipidemia Maternal Grandfather Lung cancer Asthma Paternal Grandfather Heart disease Maternal Grandmother Diabetes Paternal Grandmother Asthma Son No problems noted. Son No problems noted. Daughter No problems noted. Daughter No problems noted. Social History Smoking/Tobacco Use Status: Never Second Hand Exposure: No Smoking risk assessment performed?: Yes Alcohol Intake: current Alcohol Intake frequency: a few times a week Drug use: Never Substance use type: does not use Counseling given: No Counseling provided: none Caregiver/Support person: No Household members: spouse and children Housing: house Communication Needs: None Do you need help understanding health information?: Never Pets and animals: Yes Pets and animals: cat(s) and dog(s) Sexually active: Yes Do you think of yourself as: straight/heterosexual Current gender identity: female What is your relationship status?: How often do you talk on the phone with friends or family?: twice per week How often do you get together with friends or relatives?: twice per week How often do you attend roman catholic or cheondoism services?: 1-3 times per year Do you belong to any clubs or organized social groups?: no Panel score (0-1 are the most socially isolated patients): 2 What type of physical activity do you participate in: none Duration: 15-30 minutes/day Frequency: 5-6 times per week Kelly/Mu-Ism: Religion Special kelly needs: No Seatbelt use: always Helmet use: Yes Helmet use: always Drive intox or ride w/intox shuttle bus driver: No Do you feel safe at home: Yes Do you feel safe in your relationship?: Yes Victim of physical abuse: No Victim of emotional abuse: No Victim of sexual abuse: No Would you like helpful sources: No Exam Const General: cooperative, healthy appearing, comfortable, no acute distress and anxious (Mildly) Orientation: alert, awake and oriented x3 HENMT Head: normal to inspection, normocephalic and atraumatic Face and sinus: normal facial exam Mouth: moist mucous membranes Eyes General: appearance normal, both eyes and all related structures Conjunctivae: conjunctivae normal Neck Neck: normal visual inspection, full ROM, trachea midline, supple and nontender Chest Chest: normal palpation of entire chest wall Resp Effort & Inspection: normal respiratory effort and able to speak in complete sentences Auscultation: clear to auscultation bilaterally Cardio Rate: regular rate Rhythm: regular rhythm GI Palpation: soft and nontender Back/Spine/Pelvis Back: No back tenderness Skin General skin exam: no rashes or lesions noted Neuro General: patient alert, patient awake, moves all extremities and no focal motor deficits Cognition: normal cognition Speech: speech normal Gait: normal gait Motor: muscle tone normal throughout Sensory Exam: no sensory deficits noted Extrem General: normal to inspection, full ROM, capillary refill normal, no pedal edema and no calf tenderness Psych Appearance: grossly normal Mental Status: mental status grossly normal Course Vital Signs Vital signs: Vital Signs Temperature 36.9 C 04/26/22 17:02 Pulse 124 H 04/26/22 17:02 Respiratory Rate 15 04/26/22 17:02 Blood Pressure 180/90 H 04/26/22 17:02 Pulse Oximetry 100 04/26/22 17:02 Temperature 36.9 C 04/26/22 17:02 Temperature Source Oral 04/26/22 17:02 Pulse 124 H 04/26/22 17:02 Respiratory Rate 15 04/26/22 17:02 Respiratory Effort Non-Labored 04/26/22 17:05 Blood Pressure 180/90 H 04/26/22 17:02 Blood Pressure Position Sitting 04/26/22 17:02 Pulse Oximetry 100 04/26/22 17:02 Oxygen Delivery Method Room Air 04/26/22 17:02 Oxygen Flow Rate 0 04/26/22 17:02 Pain Level 0 04/26/22 17:02 PAWSS Have you Been Recently Intoxicated or Drunk Within the Last 30 days?: Yes Have you Ever Experienced Previous Episodes of Alcohol Withdrawal?: No Have you ever Experienced Withdrawal Seizures?: No Have you ever Experienced Delirium Tremens(DT)s?: No Have you ever undergone Alcohol Rehabilitation Treatment (i.e, inpt ot outpatient treatment programs)?: No Have you ever Experienced Blackouts?: No Have you ever Combined Alcohol with other Downers within the last 90 days?: No Have you ever Combined Alcohol with any other Substance of Abuse during the last 90 days?: No Positive Blood Alcohol level on Presentation? [PCS.BAL]: No Evidence of Increased Autonomic Activity (i.e. HR>120, tremor, sweating, agitation, nausea)?: No Result: 1
[2022-04-26] MEDS: Aspirin 325 MG TAB PO (17:38)
[2022-04-26 17:40] LABS: Abs Immature Grans 0.02 10^3/uL (0.0-0.06); Absolute Basophil Count 0.05 10^3/uL (0.0-0.2); Absolute Eosinophil Count 0.16 10^3/uL (0.0-0.7); Absolute Lymphocyte Count 2.84 10^3/uL (1.2-3.4); Absolute Monocyte Count 0.66 10^3/uL (0.1-0.8); Absolute Neutrophil Count 5.21 10^3/uL (1.2-6.7); Basophils % 0.6; Eosinophils % 1.8; HCT 40.2 % (36.0-46.0); HGB 13.1 g/dL (11.2-15.7); Immature Grans % 0.2; Lymphocytes % 31.8; MCHC 32.6 % (32.0-36.0); MCV 89 fL (80-95); MPV 9.1 fL (8.0-11.0); Monocytes % 7.4; Neutrophils % 58.2; Platelet Count 306 10^3/uL (130-400); RBC 4.51 10^6/uL (3.93-5.22); RDW 12.4 % (11.7-14.6); RDW-SD 40.9 fL; WBC 8.94 10^3/uL (4.4-10.8)
[2022-04-26 18:07] LABS: ALT 21 U/L (14-59); AST 15 U/L (15-37); Albumin 4.5 g/dL (3.4-5.0); Alkaline Phosphatase 56 U/L (46-116); Anion Gap 12.6 mmol/L (3-11); BUN 11 mg/dL (7-18); Bilirubin, Total 0.3 mg/dL (0.2-1.0); CO2 25.4 mmol/L (21.0-32.0); CREATININE 0.8 mg/dL (0.55-1.02); Calcium 9.4 mg/dL (8.5-10.1); Chloride 105 mmol/L (98-107); Glucose 93 mg/dL (74-106); Magnesium 1.9 mg/dL (1.8-2.4); Potassium 3.1 mmol/L (3.5-5.1); Sodium 143 mmol/L (136-145); TSH (W/Ref FT4) 1.38 uIU/mL (0.36-3.74); Total Protein 8.2 g/dL (6.4-8.2); Troponin I < 50 ng/L (<or=60)
[2022-04-26 18:11] LABS: INR 0.9 (0.9-1.1); PTT Activated 22.5 sec (21.0-27.5); Prothrombin Time 9.5 sec (9.3-11.0)
[2022-04-26 18:15] LABS: ETHANOL BLOOD 4.6 mg/dL (<10)
[2022-04-26 18:17] LABS: D-Dimer 104 ng/mlFEU (<500)
[2022-04-26] MEDS: Potassium Chloride 20 MEQ TABCR 40 MEQ PO (18:27)
--- NOTE | 2022-04-26 18:37 | DI.VRAD_ITS ---
PROCEDURE INFORMATION: Exam: XR Chest Exam date and time: 04/26/2022 6:09 PM Age: 47 years old Clinical indication: Other: Palpitations x1 week TECHNIQUE: Imaging protocol: Radiologic exam of the chest. Views: 2 views. COMPARISON: No relevant prior studies available. FINDINGS: Lungs: The lungs are clear. There is no pulmonary vascular congestion. Pleural spaces: There are no pleural effusions present. There is no evidence of pneumothorax. Heart/Mediastinum: The cardiomediastinal silhouette is within normal limits. Diaphragm: There is mild anterior eventration of the right hemidiaphragm. Bones/joints: There is mild thoracic dextroscoliosis. IMPRESSION: No active cardiopulmonary disease identified. Dictated and Authenticated by: Cesar Hi MD. Ordering:RUSSELL Rodriguez MD
[2022-04-26 20:53] LABS: Troponin I < 50 ng/L (<or=60)
== END 2022-04-26 21:43 | disposition home or self-care (01) ==
PROVIDERS: Emergency Provider Physician Assistant
DX: F41.9 Anxiety disorder, unspecified; R07.89 Other chest pain
CPT/HCPCS: 36415; 80053; 93005; 99284; 71046; 80320; 83735; 84443; 84484; 85025; 85379; 85610; 85730; 93010; 99283

== ENCOUNTER 2022-05-02 01:05 | Outpatient (RCR) | payer BC, SELFPAY ==
--- NOTE | 2022-05-02 10:00 | HOLTER_ITS ---
APPROVED REPORT Conclusion This is a 48-hour Holter monitor ordered for palpitations Predominant rhythm was sinus with an average heart rate of 76. Minimum was 56, maximum 131 There were rare isolated atrial and premature beats There was no atrial fibrillation, no high-grade AV block, no pauses greater than 3 seconds The episode which the computer labeled SVT was in fact sinus tachycardia No patient symptoms were reported
== END 2022-05-11 23:59 | disposition home or self-care (01) ==
LOC: RT 01:05
PROVIDERS: Visit Provider Physician Assistant
DX: R00.2 Palpitations (principal); R00.0 Tachycardia, unspecified
CPT/HCPCS: 93225; 93226

== ENCOUNTER 2022-07-24 18:13 | Outpatient (REF) | payer BC, SELFPAY ==
[2022-07-24 21:46] LABS: Abs Immature Grans 0.01 10^3/uL (0.0-0.06); Absolute Basophil Count 0.04 10^3/uL (0.0-0.2); Absolute Eosinophil Count 0.22 10^3/uL (0.0-0.7); Absolute Lymphocyte Count 2.64 10^3/uL (1.2-3.4); Absolute Monocyte Count 0.65 10^3/uL (0.1-0.8); Absolute Neutrophil Count 4.29 10^3/uL (1.2-6.7); Basophils % 0.5; Eosinophils % 2.8; HCT 37.2 % (36.0-46.0); HGB 12.3 g/dL (11.2-15.7); Immature Grans % 0.1; Lymphocytes % 33.6; MCH 29.4 pg (27.0-33.0); MCHC 33.1 % (32.0-36.0); MCV 89 fL (80-95); MPV 10.2 fL (8.0-11.0); Monocytes % 8.3; Neutrophils % 54.7; Platelet Count 305 10^3/uL (130-400); RBC 4.18 10^6/uL (3.93-5.22); RDW 12.6 % (11.7-14.6); RDW-SD 41.8 fL; WBC 7.85 10^3/uL (4.4-10.8)
[2022-07-24 21:56] LABS: ALT 19 U/L (14-59); AST 16 U/L (15-37); Albumin 4.1 g/dL (3.4-5.0); Alkaline Phosphatase 55 U/L (46-116); Anion Gap 9.8 mmol/L (3-11); BUN 7 mg/dL (7-18); Bilirubin, Total 0.3 mg/dL (0.2-1.0); CO2 27.2 mmol/L (21.0-32.0); CREATININE 0.6 mg/dL (0.55-1.02); Chloride 103 mmol/L (98-107); Estimated GFR 112.73 (mL/min/1.73m2); Glucose 83 mg/dL (74-106); Lipase 70 U/L (73-393); Potassium 3.7 mmol/L (3.5-5.1); Sodium 140 mmol/L (136-145); Total Protein 7.4 g/dL (6.4-8.2)
== END 2022-07-24 18:14 | disposition home or self-care (01) ==
LOC: LBN 18:13
PROVIDERS: Visit Provider Physician Assistant
DX: R10.11 Right upper quadrant pain (principal)
CPT/HCPCS: 80053; 83690; 85025

== ENCOUNTER 2023-06-12 02:53 | Outpatient (CLI) | payer BC, SELFPAY ==
[2023-06-12 11:56] LABS: Abs Immature Grans 0.01 10^3/uL (0.0-0.06); Absolute Basophil Count 0.04 10^3/uL (0.0-0.2); Absolute Eosinophil Count 0.22 10^3/uL (0.0-0.7); Absolute Lymphocyte Count 2.13 10^3/uL (1.2-3.4); Absolute Monocyte Count 0.62 10^3/uL (0.1-0.8); Absolute Neutrophil Count 3.43 10^3/uL (1.2-6.7); Basophils % 0.6; Eosinophils % 3.4; HCT 38.5 % (36.0-46.0); HGB 12.7 g/dL (11.2-15.7); Immature Grans % 0.2; MCH 29.5 pg (27.0-33.0); MCV 90 fL (80-95); MPV 9.8 fL (8.0-11.0); Monocytes % 9.6; Neutrophils % 53.2; Platelet Count 305 10^3/uL (130-400); RDW 13.2 % (11.7-14.6); RDW-SD 43.1 fL; WBC 6.45 10^3/uL (4.4-10.8)
[2023-06-12 11:58] LABS: ESR 6 mm/hr (0-20)
[2023-06-12 12:56] LABS: ALT 15 U/L (14-59); AST 16 U/L (15-37); Alkaline Phosphatase 52 U/L (46-116); Anion Gap 9.2 mmol/L (3-11); BUN 10 mg/dL (7-18); Bilirubin, Total 0.4 mg/dL (0.2-1.0); CO2 25.8 mmol/L (21.0-32.0); CREATININE 0.6 mg/dL (0.55-1.02); Calcium 9.2 mg/dL (8.5-10.1); Calculated LDL 146 mg/dL (<100); Chloride 103 mmol/L (98-107); Cholesterol 245 mg/dL (<200); Estimated GFR 112.04 (mL/min/1.73m2); Glucose 89 mg/dL (74-106); HDL Cholesterol 67 mg/dL (40-60); Potassium 3.8 mmol/L (3.5-5.1); Sodium 138 mmol/L (136-145); Total Protein 7.7 g/dL (6.4-8.2); Triglyceride 161 mg/dL (<150)
[2023-06-12 13:07] LABS: C-Reactive Protein 0.08 mg/dL (0.0-0.3)
[2023-06-13 09:08] LABS: Cyclic Citrullinated Peptide <2.5 U/mL (<5.0)
[2023-06-13 14:36] LABS: ANA Interpretation Negative (Negative)
== END 2023-06-12 02:54 | disposition home or self-care (01) ==
PROVIDERS: PCP Nurse Practitioner Family; Visit Provider Nurse Practitioner Family
DX: M25.542 Pain in joints of left hand (principal); Z13.9 Encounter for screening, unspecified; M25.541 Pain in joints of right hand
CPT/HCPCS: 36415; 80053; 80061; 85652; 86200; 85025; 86038; 86140

== ENCOUNTER 2023-09-06 13:12 | Outpatient (CLI) | payer BC, SELFPAY ==
--- NOTE | 2023-09-06 13:30 | RT.EKG_ITS ---
APPROVED REPORT Exam: Resting ECG Reason for Exam: palpatations Patient Location: O HR:66 bpm ECG Measurements Heart Rate 66 AXIS GA 123 P 47 QRSd 95 QRS 40 QT 395 T 45 QTc 414 Conclusion Sinus rhythm...normal P axis, V-rate 50- 99 Normal Electrocardiogram
== END 2023-09-06 13:13 | disposition home or self-care (01) ==
PROVIDERS: PCP Nurse Practitioner Family; Visit Provider Nurse Practitioner Family
DX: R00.2 Palpitations (principal); F41.9 Anxiety disorder, unspecified
CPT/HCPCS: 93010

== ENCOUNTER → 2023-09-10 01:32 | Outpatient (CLI) | payer BC, SELFPAY ==
--- NOTE | 2023-09-10 08:00 | ETT_ITS ---
APPROVED REPORT Exam: Exercise Treadmill Patient Location: Out-Patient Room/Bed: Stress Nurse: Yunior Looney RN Ordering Provider:CELINA LONGORIA, Contact Number: [phone] BMI: 22.86 Baseline Rhythm: Sinus Rhythm Indications: Palptiations. Medical History Medical History: HLD, HTN, Anxiety, Intermittent palpitations. Cardiac Medications: Propanolol Allergies: Lexapro, zoloft, Bupropion. Cardiac Risk Factors: HLD Previous Cardiac Procedures: Holter monitor. Pretest Chest Pain Characteristics: none Exercise History: Physically active Physical Disabilities: none Lung Sounds: clear Heart Sounds: Si S2 regular Stress Test Details Test: Exercise stress testing was performed using a Anton protocol. Rest Stress HR Resting HR Supine: 87 bpm Max Heart Rate (APMHR): 174 bpm Resting HR Standin bpm Target HR (85% APMHR): 148 bpm Max HR Achieved: 182 bpm % of APMHR: 105 Recovery HR: 89 bpm HR response to stress: Normal HR response to stress BP Resting BP Supine: 130/92 mmHg Resting BP Standin/94 mmHg Max BP: 204/80 mmHg Recovery BP: 134/86 mmHg BP response to stress: Normal blood pressure response to stress. ECG Resting ECG: Sinus Rhythm Ectopy: none Stress ECG: Sinus Tachycardia ST Change: No significant ST segment changes noted Arrhythmia: VPC's Recovery ECG: Sinus Rhythm Recovery ST Change: No significant ST segment changes noted Recovery Arrhythmia: none Clinical Reason for Termination: Target HR Achieved Stress Symptoms: none Exercise duration: 9 min16 sec Highest Stage Reached: Stage 3: 3.4 mph at 14% grade. Exercise capacity: 10.70 METs Angina Score: None Celeste Treadmill Score: 8.1 Rate Pressure Product: [id number] Stress ECG Conclusion 1. Resting electrocardiogram was within normal limits 2. Patient exercised on the Anton protocol and completed a workload of 10.7 METS, limited by fatigue 3. Normal heart rate and blood pressure response to exercise. The patient achieved greater than 100% of predicted heart rate for age 4. There was no electrocardiographic evidence of myocardial ischemia 5. There were no dysrhythmias Celeste Treadmill Score is 8.1 which is Low risk. Stress Test Summary STAGE Time (mins) Speed (mph) Grade (%) HR BP SpO2 SYMPTOMS METS Supine 87 130/92 98 none Standing 93 132/94 98 none 1 3 1.7 10 129 170/92 97 none 4.5 2 6 2.5 12 146 182/90 98 none 7 3 9 3.4 14 162 96 none 10 1 min recovery 182 204/80 98 none 3 min recovery 104 156/82 none 6 min recovery \ 89 134/86 97 none
== END ==
PROVIDERS: PCP Nurse Practitioner Family; Visit Provider Nurse Practitioner Family
DX: R00.2 Palpitations (principal)
CPT/HCPCS: 93017

== ENCOUNTER 2023-09-13 03:08 | Outpatient (CLI) | payer BC, SELFPAY ==
[2023-09-13 07:23] LABS: HCT 37.8 % (36.0-46.0); HGB 12.3 g/dL (11.2-15.7); MCH 28.9 pg (27.0-33.0); MCHC 32.5 % (32.0-36.0); MCV 89 fL (80-95); MPV 8.6 fL (8.0-11.0); Platelet Count 325 10^3/uL (130-400); RBC 4.26 10^6/uL (3.93-5.22); RDW-SD 42.4 fL; WBC 5.74 10^3/uL (4.4-10.8)
[2023-09-13 08:04] LABS: Anion Gap 10.4 mmol/L (3-11); BUN 17 mg/dL (7-18); CO2 24.6 mmol/L (21.0-32.0); CREATININE 0.7 mg/dL (0.55-1.02); Calcium 9.4 mg/dL (8.5-10.1); Chloride 104 mmol/L (98-107); Estimated GFR 107.95 (mL/min/1.73m2); Glucose 100 mg/dL (74-106); Potassium 4.2 mmol/L (3.5-5.1); Sodium 139 mmol/L (136-145); TSH (W/Ref FT4) 2.49 uIU/mL (0.36-3.74)
== END 2023-09-13 03:09 | disposition home or self-care (01) ==
PROVIDERS: PCP Nurse Practitioner Family; Visit Provider Nurse Practitioner Family
DX: F41.9 Anxiety disorder, unspecified (principal); R00.2 Palpitations
CPT/HCPCS: 36415; 80048; 85027; 84443

== ENCOUNTER 2023-09-13 08:26 | Outpatient (RCR) | payer BC, SELFPAY ==
--- NOTE | 2023-09-13 08:30 | HOLTER_ITS ---
APPROVED REPORT Conclusion This is a 48-hour Holter monitor ordered for palpitations Rhythm throughout was sinus with an average heart rate of 78. Minimum was 61, maximum 121 A total of 4 isolated atrial premature beats were seen There were 4 isolated ventricular ectopic beats There was no atrial fibrillation, no SVT, no high-grade AV block, no pauses greater than 3 seconds Symptoms were reported which had no correlation with any dysrhythmia
== END 2023-10-11 23:59 | disposition home or self-care (01) ==
LOC: CARDOPNVT 08:26
PROVIDERS: PCP Nurse Practitioner Family; Visit Provider Nurse Practitioner Family
DX: R00.2 Palpitations (principal)
CPT/HCPCS: 93225; 93226

== ENCOUNTER → 2023-10-12 00:51 | Outpatient (CLI) | payer BC, SELFPAY ==
--- NOTE | 2023-10-12 07:45 | DI.US_ITS ---
APPROVED REPORT EXAM: Comprehensive 2D, Doppler, and color-flow Echocardiogram Patient Location: Out-Patient [employer] St[employer] Repairer: Ervin Swann RDCS (AE) Indications: new palpitations Other Information Study Quality: Good Conclusion Normal left ventricular wall thickness and chamber size. Ejection fraction is 60 to 65%. Wall motio n is normal Normal right ventricular size and systolic function Both atria are normal in size There is no structural or hemodynamically significant valvular disease Wall motion Left Ventricle The left ventricle is normal size. Left ventricular systolic function is normal. The left ventricular ejection fraction is within the normal range. There is normal left ventricular wall thickness. There is normal LV segmental wall motion. Left ventricular filling pattern is normal for age. There is no ventricular septal defect visualized. LVEF is 60-65%. Right Ventricle The right ventricle is normal size. The right ventricular systolic function is normal. The RVSP is 15 .1 mmHg. Atria The left atrium size is normal. The right atrium size is normal. Aortic Valve The aortic valve is normal in structure. Aortic valve is trileaflet. There is no aortic valvular sten osis. No aortic regurgitation is present. Mitral Valve The mitral valve is normal in structure. No evidence of mitral valve stenosis. Trace to mild mitral r egurgitation. Tricuspid Valve The tricuspid valve is normal in structure. There is no tricuspid valve stenosis. Trace tricuspid reg urgitation. Pulmonic Valve The pulmonary valve is normal in structure. There is no pulmonic valvular stenosis. There is no pulmo hattie valvular regurgitation. Great Vessels The aortic root is normal in size. The ascending aorta is normal in size. Aortic arch is normal in ca liber. IVC is normal in size and collapses >50% with inspiration. Pericardium There is no pericardial effusion. 2D Dimensions IVSD d PLAX 0.79 cm F: 0.6-1.0 Ao Root d 2.56 cm F: 2.7 - 3.3 LVPW d PLAX 0.82 cm F: 0.6 - 1.0 Ao Asc Diam d 2.89 cm F: 2.3 - 3.1 LVID d PLAX 4.41 cm F: 3.8 - 5.2 LVDs 2.87 cm F: 2.2 - 3.5 LV EF Teichholz 64.5 % FS 35.02 % LV EDV (Teich) 88.4 mL LV ESV (Teich) 31.4 mL Stroke Vol Index (Teich) 36.31 M-Mode TAPSE 2.54 cm (M/F) >1.7 Auto EF LV EDV A4C 76.7 mL LV EDV A2C 87.9 mL LV EDV BP 83.2 mL LV ESV A4C 31.1 mL LV ESV A2C 32.2 mL LV ESV BP 32.1 mL LVEF(%) A4C 59.5 % LVEF(%) A2C 63.4 % LVEF(%) BP 61.4 % LV SV A4C 45.7 ml LV SV A2C 55.7 ml LV SV BP 51.1 ml LV CO A4C 3.3 L/min LV CO A2C 3.5 L/min LV CO BP 3.4 L/min HR A4C 72.29 BPM HR A2C 62.18 BPM LV EDV Index (BP) LA Volume LA Length A4C 4.9 cm LA Length A2C LA Area A4C s 11.82 cm2 LA Area A2C s LA Vol A4C A-L 23.98 mL LA Vol A2C A-L LA Vol Biplane A-L LA Vol A4C MOD 22.8 mL LA Vol A2C MOD LA Vol BP MOD RA Volume RA Area A4C 8.2 cm2 RA ESV A4C (A-L) 16.7mL RA Vol/BSA A4C A-L RA Length A4C 3.4 cm RA ESV A4C (MOD) 15.7mL LV Diastology MV E Vmax 0.93 (0.4-1.3 m/s) MV A Vmax 0.75 (0.4-1.3 m/s) E/A Ratio 1.2 Aortic Valve AoV Vmax 1.51 m/s LVOT Vmax 1.25 m/s AoV Peak Grad 9.1 mmHg LVOT Peak Grad 6.2 mmHg AoV Area (Vmax) 2.54 cm2 LVOT VTI 0.263 m AoV VTI 0.344 m LVOT Mean Grad 2.9 mmHg AoV Mean Duke. 1.01 m/s LVOT SV 80.84 mL AoV Mean Grad 4.6 mmHg LVOT Diam s 1.95 cm AoV Area (VTI) 2.35 cm2 Velocity Ratio 0.83 Mitral Valve MV DT 164 (160-240 msec) Pulmonary Valve PV Vmax 0.99 (0.5-1.5 m/s) RVOT Vmax 0.82 m/s PV Peak Grad 4.0 mmHg RVOT Peak Gr. 2.7 mmHg PV Mean Duke 0.65 m/s RVOT VTI 0.145 m PV Mean Grad 2.0 mmHg RVOT Mean Gr. 1.2 mmHg Tricuspid Valve RA Pressure 3.00 mmHg TR Vmax 1.74 m/s TR Peak Grad 12.0 mmHg RVSP (TR) 15.1 mmHg
== END ==
PROVIDERS: PCP Nurse Practitioner Family; Visit Provider Nurse Practitioner Family
DX: R00.2 Palpitations (principal)
CPT/HCPCS: 93306

== ENCOUNTER 2023-12-31 10:03 | Outpatient (REF) | payer BC, SELFPAY ==
--- NOTE | 2023-12-31 07:40 | PAPFT_PTH ---
PATIENT: Leticia Billings LOC: N U#:[id number] AGE/SX: 48/F ROOM: RE12/31/[address]: Bhupinder Alexandre DNP : 1975 BED: DIS: 12/31/2023 SPEC #: [id number] RECD: 12/31/23 13:07 STATUS: NGOC REHeidy #: [id number] MAXIMILIANO: 12/31/23 07:[address]: Bhupinder Dan DEPT: [facility] Cytology RECD BY: Sanna Larson Tissues: 1 - CX/ENDOCX FOR PAP SMEARS Procedures: PAP THIN PREP/UVM Screening HPV DNA PROBE Comments: [id number]
== END 2023-12-31 10:04 | disposition home or self-care (01) ==
LOC: LBN 10:03
PROVIDERS: PCP Nurse Practitioner Family; Referring Provider Nurse Practitioner Family; Visit Provider Nurse Practitioner Family
DX: Z12.4 Encounter for screening for malignant neoplasm of cervix (principal)
CPT/HCPCS: 88142; 87624

== ENCOUNTER → 2024-01-08 02:51 | Outpatient (CLI) | payer BC, SELFPAY ==
--- NOTE | 2024-01-08 05:45 | DI.MAMMO_ITS ---
Exam(s) MAMMO SCREENING EXAM: MAMMO SCREENING CLINICAL HISTORY: screening,z12.39 TECHNIQUE: Mammograms were interpreted according to the usual protocol including computer analysis w [employer] / [employer] CAD system, tomosynthesis and C-view imaging. COMPARISON: 2016 through 2021 FINDINGS: The breasts are composed of heterogeneously dense fibroglandular densities, Breast Density category C . No suspicious masses or suspicious microcalcifications are seen. No skin thickening or abnormal axillary lymph nodes are seen. There has been no significant change from prior exams. IMPRESSION: BI-RADS Category 1, Negative mammogram. Yearly screening mammography is recommended. Breast Density Category C, heterogeneously Dense. The mammogram demonstrates the patient's breast tissue is dense. Dense breast tissue is very common a nd is not abnormal but dense breast tissue can make it harder to find cancer on a mammogram. Also, de nse breast tissue may increase breast cancer risk. This information about the result of the mammogram report was provided to the patient to raise their awareness. Use this report when you speak with the patient about their risks for breast cancer, which includes their family history. At that time, you may recommend additional screening tests (Ultrasound or MRI) as they might be useful based on their r isk. A negative radiographic report should not delay biopsy if a dominant or clinically suspicious mass is present. Up to ten percent of cancers are not identified on mammography. A negative report may reinforce clinical impression. Adenosis and dense breasts may obscure an underlying neoplasm. False positive reports average 6 to 10%.
== END ==
PROVIDERS: PCP Nurse Practitioner Family; Visit Provider Nurse Practitioner Family
DX: Z12.31 Encounter for screening mammogram for malignant neoplasm of breast (principal)
CPT/HCPCS: 77063; 77067

== ENCOUNTER 2024-11-03 08:59 | Outpatient (CLI) | payer BC, SELFPAY ==
--- NOTE | 2024-11-03 08:45 | RT.EKG_ITS ---
APPROVED REPORT Exam: Resting ECG Reason for Exam: chest pain Patient Location: O HR:64 bpm ECG Measurements Heart Rate 64 AXIS NV 128 P 45 QRSd 96 QRS 24 QT 396 T 45 QTc 409 Conclusion Sinus rhythm...normal P axis, V-rate 50- 99 Normal Electrocardiogram
== END 2024-11-03 09:00 | disposition home or self-care (01) ==
LOC: DI.CM 09:01
PROVIDERS: PCP Nurse Practitioner Family; Visit Provider Nurse Practitioner Family
DX: R00.2 Palpitations (principal)
CPT/HCPCS: 93010

== ENCOUNTER 2025-04-14 20:58 | Emergency (ER) | payer BC, SELFPAY ==
[2025-04-14] VITALS (12 sets, daily range): BP systolic 128–166; BP diastolic 73–92; PULSE 66–110; RESP 8–18; TEMP 36.9; O2SAT 98–100
--- NOTE | 2025-04-14 21:00 | RT.EKG_ITS ---
APPROVED REPORT Exam: Resting ECG Reason for Exam: Chest pain Patient Location: E HR:89 bpm ECG Measurements Heart Rate 89 AXIS OR 125 P 85 QRSd 86 QRS 47 QT 365 T 45 QTc 445 Conclusion Sinus rhythm...normal P axis, V-rate 60- 99 Normal Electrocardiogram
--- NOTE | 2025-04-14 21:15 | DI.RAD_ITS ---
Exam(s) XR CHEST 2V PA LATERAL EXAM: XR CHEST 2V PA LATERAL CLINICAL HISTORY: Chest pain TECHNIQUE: 2D digital imaging was performed of the chest. Two images were obtained. PA and lateral views were obtained. COMPARISON: CR,XR XR CHEST 2V PA LATERAL from 04/26/2022 FINDINGS: Bilateral nipple shadows are present. MEDIASTINUM: Normal. HEART: Normal. PULMONARY VASCULATURE: Normal. LUNGS: Clear. PLEURAL SPACE: No pleural effusion or pneumothorax. BONE:Within normal limits for the patient's age. OTHER FINDINGS:Normal. IMPRESSION: No acute pulmonary findings. DATA REPOSITORY: RADIATION DOSE DELIVERED:
--- NOTE | 2025-04-14 21:25 | ED.GENADUL_ITS ---
Discharge Plan Disposition Patient Disposition: Home Condition: Stable Discharge Details Clinical Impression: Chest pain Primary Care Provider: Bhupinder Dan ED Provider: Jami Burrows Home Meds and New Rx's Prescriptions: Continued acetaminophen [Tylenol] 325 MG tablet 650 mg PO PRN PRN ibuprofen 600 MG tablet 600 mg PO TID PRN cholecalciferol (vitamin D3) 50 mcg (2,000 unit) capsule 2,000 unit PO DAILY Qty: 90 4RF propranolol 10 mg tablet 10 mg PO BID PRN (Reason: anxiety, palpitations) Qty: 180 4RF lorazepam 0.5 mg tablet 0.5 mg PO BID MDD 2mg PRN (Reason: anxiety/panic) Qty: 18 0RF Rx Instructions: 0.5-1.0mg (1-2 tabs) up to 2 times per day for severe panic Discharge Instructions Instructions: Chest Pain, Adult ED Additional Instructions: At this time your cardiac workup is within normal limits. No evidence for blood clots in your lungs, no evidence for electrolyte abnormality no pneumonia pneumothorax or evidence of a heart attack today. Follow up with primary care provider in 3-5 days to discuss further workup including a stress test or an echocardiogram if symptoms continue. Return to ED sooner if any worsening or concerns. Thank you for allowing us to care for you today. Referrals: Bhupinder Dan, DIRECTOR TRADING [Primary Care Provider] - 3 days HPI General Mode of arrival: ambulatory . Date/Time Provider Initiated Documentation: 04/14/25 21:21 . Limitations to Documentation: no limitations . Information obtained by: patient, RN notes reviewed and old records reviewed . HPI Narrative: 50-year-old female presents to the ER with a chief complaint of chest pressure which radiates down to her left arm and up into her jaw for the last 2 days. She reports that it is intermittent in nature describes it as pressure. She does have a history of anxiety and heart palpitations. She reports that she thought that it would just go away but it continues to come and go in waves. Denies any swelling in her legs, no recent trips in a car or plane, is a non- smoker. Does have a family history of heart disease and an uncle that of an ND at age 49. And parents with stent placements. She reports mild dizziness no nausea. Does not take aspirin on a daily basis. Related Data Home Medications ?Medication ?Instructions ?Recorded ?Confirmed acetaminophen 325 mg tablet 650 mg PO PRN PRN 12/04/13 04/14/25 (Tylenol) ibuprofen 600 mg tablet 600 mg PO TID PRN 12/04/13 04/14/25 cholecalciferol (vitamin D3) 50 2,000 unit PO DAILY #90 caps 11/18/24 04/14/25 mcg (2,000 unit) capsule propranolol 10 mg tablet 10 mg PO BID PRN anxiety, 03/03/25 04/14/25 palpitations #180 tabs lorazepam 0.5 mg tablet 0.5 mg PO BID PRN anxiety/panic 03/30/25 04/14/25 #18 tabs Previous Rx's ?Medication ?Instructions ?Recorded cholecalciferol (vitamin D3) 50 2,000 unit PO DAILY #90 caps 11/18/24 mcg (2,000 unit) capsule propranolol 10 mg tablet 10 mg PO BID PRN anxiety, 03/03/25 palpitations #180 tabs lorazepam 0.5 mg tablet 0.5 mg PO BID PRN anxiety/panic 03/30/25 #18 tabs Allergies Allergy/AdvReac Type Severity Reaction Status Date / Time escitalopram AdvReac Intermediate Headache Verified 01/21/25 11:29 sertraline HCl (From Zoloft) AdvReac Mild H/A Verified 01/21/25 11:29 bupropion (From Wellbutrin) AdvReac Insomnia Verified 01/21/25 11:29 PPD (Found in Hair Dye) Allergy Intermediate Skin Rash Uncoded 01/21/25 11:29 General Stated Complaint: Chest Pain GISELA: 2 Review of Systems All systems reviewed & are unremarkable except as noted in HPI and below Cardiovascular Cardiovascular: Reports chest pain, Reports lightheadedness, Reports radiating jaw, neck or arm pain and Denies dyspnea Respiratory Respiratory: Denies cough and Denies dyspnea Exam Narrative Exam Narrative: Constitutional: Alert and oriented x3. Appears stated age. Normal body habitus. Head: Normocephalic, no trauma. Eyes: Pupils PERRL, Red reflex noted, EOM's intact. Eyelids symmetrical without lesions, discharge, or swelling. ENT: Bilateral TM's WNL, External ear normal to inspection, no mastoid TTP, swelling, or erythema, Nasal turbinates WNL, no nasal discharge. Normal dentition, Posterior pharynx WNL, no exudate. Chest: RRR, Normal S1, S2, distal pulses intact. Resp: Lungs clear to auscultation bilaterally, no wheezes, rales, or rhonchi. Abdomen: Soft, non-distended, Normoactive bowel sounds all 4 quads. Musculoskeletal: Normal gait, Moves all 4 extremities without difficulty. Skin: No suspicious rashes or lesions. Capillary refill less than 2 sec. Neurologic: Cranial nerves II-XII intact. Alert and oriented x 3. Motor: No deficits noted. Sensory: Intact bilaterally all 4 extremities. Hematologic/Lymphatic: No ecchymosis, no lymphadenopathy. Course Vital Signs Vital signs: Vital Signs Temperature 36.9 C 04/14/25 21: Pulse 110 H 04/14/25 21:01 Respiratory Rate 18 04/14/25 21:01 Blood Pressure 154/92 H 04/14/25 21:01 Pulse Oximetry 99 04/14/25 21:01 Temperature 36.9 C 04/14/25 21:01 Temperature Source Oral 04/14/25 21:01 Pulse 110 H 04/14/25 21:01 Respiratory Rate 18 04/14/25 21:09 Respiratory Effort Normal 04/14/25 21:09 Respiratory Depth Normal 04/14/25 21:09 Respiratory Pattern Normal 04/14/25 21:09 Blood Pressure 154/92 H 04/14/25 21:01 Pulse Oximetry 99 04/14/25 21:01 Oxygen Delivery Method Room Air 04/14/25 21:01 Oxygen Flow Rate 0 04/14/25 21:01 Pain Level 5 04/14/25 21:01 Medical Decision Making 50-year-old female presents to the ER with a chief complaint of chest pressure which radiates down to her left arm and up into her jaw for the last 2 days. She reports that it is intermittent in nature describes it as pressure. She does have a history of anxiety and heart palpitations. She reports that she thought that it would just go away but it continues to come and go in waves. Denies any swelling in her legs, no recent trips in a car or plane, is a non- smoker. Does have a family history of heart disease and an uncle that of an ND at age 49. And parents with stent placements. She reports mild dizziness no nausea. Does not take aspirin on a daily basis. EKG was reviewed by myself and Dr. Carver ER attending, old EKG available for review. No significant ST elevations noted. Please see official report. Workup ordered including serial troponins, CBC CMP D-dimer lipase chest x-ray and 324 mg of aspirin. Differential diagnosis includes but not limited to GERD, CAD, ND, NSTEMI anxiety, PE, pneumonia, aneurysm. Workup is largely unremarkable no leukocytosis D-dimer within normal limits, 2 serial troponins within normal limits chest x-ray shows no acute abnormality. Will discharge patient with follow-up with PCP to return to the ER for any worsening chest pain shortness of breath dizziness lightheadedness or concerns. Patient remained hemodynamically stable throughout the remainder of her stay was ambulatory and discharged into the care of her family. Heart rate has improved on discharge. This text was generated using [employer] system, please disregard any oddities of phrase or misspellings. Medical Records Medical records reviewed: Yes I reviewed the patient's medical records. Lab Data Lab results reviewed: Yes I reviewed the patient's lab results. Labs: Laboratory Tests Range/Units 04/14/25 04/14/25 21:35 22:36 WBC (4.4-10.8) 10^3/uL 8.26 RBC (3.93-5.22) 10^6/uL 4.41 Hgb (11.2-15.7) g/dL 12.9 Hct (36.0-46.0) % 39.7 MCV (80-95) fL 90 MCH (27.0-33.0) pg 29.3 MCHC (32.0-36.0) % 32.5 RDW (11.7-14.6) % 12.5 Plt Count (130-400) 10^3/uL 339 MPV (8.0-11.0) fL 8.9 Immature Gran % % 0.2 Neutrophils % % 55.1 Lymphocytes % % 32.8 Monocytes % % 9.3 Eosinophils % % 2.1 Basophils % % 0.5 Nucleated RBC % (0.0-0.3) % 0.0 Absolute Neutrophils (1.2-6.7) 10^3/uL 4.55 Absolute Lymphocytes (1.2-3.4) 10^3/uL 2.71 Absolute Monocytes (0.1-0.8) 10^3/uL 0.77 Absolute Eosinophils (0.0-0.7) 10^3/uL 0.17 Absolute Basophils (0.0-0.2) 10^3/uL 0.04 D-Dimer (<500) ng/mlFEU 80 Sodium (136-145) mmol/L 140 Potassium (3.5-5.1) mmol/L 3.6 Chloride (98-107) mmol/L 102 Carbon Dioxide (21.0-32.0) mmol/L 27.6 Anion Gap (3-11) mmol/L 10.4 BUN (7-18) mg/dL 13 Creatinine (0.55-1.02) mg/dL 0.6 Est GFR (CKD-EPI 2020) (mL/min/1.73m2) 110.65 Glucose (74-106) mg/dL 101 Calcium (8.5-10.1) mg/dL 9.3 Total Bilirubin (0.2-1.0) mg/dL 0.3 AST (15-37) U/L 15 ALT (14-59) U/L 20 Alkaline Phosphatase (46-116) U/L 67 Troponin I (<or=51) ng/L 5 4 Total Protein (6.4-8.2) g/dL 7.7 Albumin (3.4-5.0) g/dL 4.1 Quality:SDOH Health Related Social Needs: No Data to Display PFSH All Active Problems (Updated 04/14/25 @ 23:08 by Jami Burrows NP) Chest pain (Acute) Right lower quadrant pain (Acute) IBS (irritable bowel syndrome) (Chronic) Facial paresthesia (Acute) Intermittent, right - post Covid Hyperlipidemia (Acute) Panic disorder (Chronic) Palpitations (Chronic) Associates with anxiety mostly, sometimes when she does not feel anxious Positive test for human papillomavirus (HPV) (Acute) Hip pain, bilateral (Chronic) Anxiety (Chronic) Medical History Intermittent palpitations Ingrowing toenail with infection (12/14/16) Surgical History History of bilateral ligation of fallopian tubes History of section Ligation of fallopian tube section 02/12 09/20 Endometrial Biopsy (10/14/15) DR. SUN; SEE SCANNED REPORT Recurrent major depression in partial remission Family History Mother Anxiety Alcohol use disorder Hyperlipidemia Father Bipolar disorder Hyperlipidemia Brother Essential hypertension Hyperlipidemia Maternal Grandfather Lung cancer Asthma Paternal Grandfather Heart disease Maternal Grandmother Diabetes Paternal Grandmother Asthma Son No problems noted. Son No problems noted. Daughter Depression Daughter Depression Social History Smoking/Tobacco Use Status: Former Tobacco Use Tobacco: How many years used: 0 Quit status: has quit before Second Hand Exposure: Yes Smoking risk assessment performed?: Yes Alcohol Intake: current Alcohol Intake frequency: a few times a week Drug use: Never Substance use type: does not use Counseling given: No Counseling provided: none Caregiver/Support person: No Household members: spouse and children Housing: house Communication Needs: None Do you need help understanding health information?: Never Pets and animals: Yes Pets and animals: cat(s) and dog(s) Sexually active: Yes Do you think of yourself as: straight/heterosexual Current gender identity: female What is your relationship status?: How often do you talk on the phone with friends or family?: three or more times per week How often do you get together with friends or relatives?: three or more times per week How often do you attend buddhist or mu-ism services?: 1-3 times per year Do you belong to any clubs or organized social groups?: no Panel score (0-1 are the most socially isolated patients): 2 What type of physical activity do you participate in: walking and yoga Frequency: 5-6 times per week Kelly/Zoroastrian: Baptist Special kelly needs: No Seatbelt use: always Helmet use: Yes Helmet use: always Drive intox or ride w/intox delivery truck driver heavy: No Do you feel safe at home: Yes Do you feel safe in your relationship?: Yes Victim of physical abuse: No Victim of emotional abuse: No Victim of sexual abuse: No Would you like helpful sources: No
[2025-04-14] MEDS: Aspirin 81 MG CHEW 324 MG CH (21:40)
[2025-04-14 21:48] LABS: Abs Immature Grans 0.02 10^3/uL (0.0-0.06); Absolute Basophil Count 0.04 10^3/uL (0.0-0.2); Absolute Eosinophil Count 0.17 10^3/uL (0.0-0.7); Absolute Lymphocyte Count 2.71 10^3/uL (1.2-3.4); Absolute Monocyte Count 0.77 10^3/uL (0.1-0.8); Absolute Neutrophil Count 4.55 10^3/uL (1.2-6.7); Basophils % 0.5 %; Eosinophils % 2.1 %; HCT 39.7 % (36.0-46.0); HGB 12.9 g/dL (11.2-15.7); Immature Grans % 0.2 %; Lymphocytes % 32.8 %; MCH 29.3 pg (27.0-33.0); MCHC 32.5 % (32.0-36.0); MCV 90 fL (80-95); MPV 8.9 fL (8.0-11.0); Monocytes % 9.3 %; Neutrophils % 55.1 %; Platelet Count 339 10^3/uL (130-400); RBC 4.41 10^6/uL (3.93-5.22); RDW 12.5 % (11.7-14.6); RDW-SD 41.6 fL; WBC 8.26 10^3/uL (4.4-10.8)
[2025-04-14 22:06] LABS: ALT 20 U/L (14-59); AST 15 U/L (15-37); Albumin 4.1 g/dL (3.4-5.0); Alkaline Phosphatase 67 U/L (46-116); Anion Gap 10.4 mmol/L (3-11); BUN 13 mg/dL (7-18); Bilirubin, Total 0.3 mg/dL (0.2-1.0); CO2 27.6 mmol/L (21.0-32.0); CREATININE 0.6 mg/dL (0.55-1.02); Calcium 9.3 mg/dL (8.5-10.1); Chloride 102 mmol/L (98-107); Estimated GFR 110.65 (mL/min/1.73m2); Glucose 101 mg/dL (74-106); Potassium 3.6 mmol/L (3.5-5.1); Sodium 140 mmol/L (136-145); Total Protein 7.7 g/dL (6.4-8.2); Troponin I 5 ng/L (<or=51)
[2025-04-14 22:14] LABS: D-Dimer 80 ng/mlFEU (<500)
--- NOTE | 2025-04-14 22:31 | DI.VRAD_ITS ---
PROCEDURE INFORMATION: Exam: XR Chest Exam date and time: 04/14/2025 9:59 PM Age: 50 years old Clinical indication: Chest pressure; Patient states chest pain has been occurring consistently for approx a week TECHNIQUE: Imaging protocol: Radiologic exam of the chest. Views: 2 views. COMPARISON: CR XR CHEST 2V PA LATERAL 04/26/2022 6:09 PM FINDINGS: Lungs: Unremarkable. No consolidation. Pleural spaces: Unremarkable. No pleural effusion. No pneumothorax. Heart/Mediastinum: Unremarkable. No cardiomegaly. Bones/joints: Unremarkable. IMPRESSION: No acute findings. Dictated and Authenticated by: Matt Dhaliwal MD. Orderin Stormy Farrell MD
[2025-04-14 23:00] LABS: Troponin I 4 ng/L (<or=51)
== END 2025-04-14 23:19 | disposition home or self-care (01) ==
PROVIDERS: Emergency Provider Registered Nurse Emergency; PCP Nurse Practitioner Family
DX: R07.89 Other chest pain (principal); R20.0 Anesthesia of skin; F41.9 Anxiety disorder, unspecified; E78.5 Hyperlipidemia, unspecified; Z82.49 Family history of ischemic heart disease and other diseases of the circulatory system; Z87.891 Personal history of nicotine dependence
CPT/HCPCS: 80053; 93005; 99285; 71046; 84484; 85025; 85379; 93010; 99284